=== PATIENT | male | born 1975 | race Two or more races ===

== ENCOUNTER 2017-03-10 21:59 | Inpatient (IN) | payer OTHER ==
[~2017-03-10] VITALS: Ht 177.8 cm; Wt 113.7 kg
[2017-03-10] MEDS ORDERED: morphine SULFATE 10 MG/ML, 1ML ONE ×2 (22:14→22:58)
[2017-03-10] MEDS ORDERED: ONDANSETRON 2MG/ML, 2ML ONE (22:19)
[2017-03-10] MEDS ORDERED: ASPIRIN 81 MG TABLET CHEW ONE (22:20)
[2017-03-10] MEDS ORDERED: ONDANSETRON 2MG/ML, 2ML IVPush ONE (22:30)
[2017-03-10] MEDS ORDERED: ASPIRIN 81 MG TABLET CHEW PO ONE (22:30)
[2017-03-10] MEDS ORDERED: PLEASE ENTER HEIGHT AND WEIGHT MC SCH (22:30)
[2017-03-10] MEDS ORDERED: SODIUM CHLORIDE FLUSH 10ML SYR IVF ONE (22:30)
[2017-03-10] MEDS: PLEASE ENTER ALLERGIES MC SCH ×2 (22:30)
[2017-03-10 22:36] LABS: HEMATOCRIT 45.3 % (39.2-51.8); HEMOGLOBIN 15.3 g/dL (13.7-18.0); WHITE BLOOD COUNT 11.5 x10^3/uL (3.4-10)
[2017-03-10 22:45] LABS: ASPARTATE AMINO TRANSFERASE 83 U/L (15-37); BLOOD UREA NITROGEN 20 mg/dL (7-18)
[2017-03-10] MEDS: MORPHINE SULFATE 4 MG/ML, 1ML IVPush PRN ×2 (22:45→23:01)
[2017-03-10 22:50] LABS: IS PT STATUS REG ER OR PRE ER? YES
[2017-03-10] MEDS ORDERED: HYDROmorphone 1 MG/ML, 1ML ONE (23:24)
[2017-03-10] MEDS ORDERED: HYDROmorphone 1 MG/ML, 1ML IV ONE (23:30)
[2017-03-10] MEDS ORDERED: SODIUM CHLORIDE 0.9% 1,000ML IVBOLUS ONE (23:30)
[2017-03-11] MEDS ORDERED: NITROGLYCERIN 0.4 MG/SPRAY SL PRN (01:00)
[2017-03-11] MEDS ORDERED: NITROGLYCERIN 0.4 MG BOTTLE (25 TABS) SL PRN (01:00)
[2017-03-11] MEDS ORDERED: hydrALAzine 20 MG/ML, 1ML IVPush PRN (01:00)
[2017-03-11] MEDS: PLEASE ENTER WEIGHT MC SCH ×2 (01:14→02:40)
[2017-03-11 01:28] LABS: IS PT STATUS REG ER OR PRE ER? YES
[2017-03-11] MEDS: morphine SULFATE 10 MG/ML, 1ML IVPush PRN ×3 (02:32→08:44)
[2017-03-11] MEDS: ONDANSETRON 2MG/ML, 2ML IVPush PRN ×2 (02:32→08:42)
[2017-03-11] MEDS: SODIUM CHLORIDE 0.9% 1,000 ML IV SCH ×3 (02:35→20:04)
[2017-03-11] MEDS: PLEASE ENTER ALLERGIES MC SCH ×2 (02:39)
[2017-03-11 02:44] VITALS: BP 156/91
[2017-03-11] MEDS ORDERED: OMEP20TA62 PO (02:44)
[2017-03-11] MEDS ORDERED: OMNIPAQUE 350 MG/ML, 100ML BOTTLE ONE (02:47)
[2017-03-11 05:07] LABS: IS PT STATUS REG ER OR PRE ER? NO
[2017-03-11 07:56] VITALS: BP 133/88
[2017-03-11] MEDS: PANTOPRAZOLE 40 MG IV IVPush SCH (07:57)
[2017-03-11] MEDS: SODIUM CHLORIDE FLUSH 10ML SYR IVF SCH ×2 (07:58→20:05)
[2017-03-11 08:47] LABS: HEMATOCRIT 45.9 % (39.2-51.8); HEMOGLOBIN 15.5 g/dL (13.7-18.0); WHITE BLOOD COUNT 9.1 x10^3/uL (3.4-10)
[2017-03-11] MEDS ORDERED: REGADENOSON 0.4 MG/5 ML SYRINGE ONE (08:55)
[2017-03-11 08:59] LABS: BLOOD UREA NITROGEN 17 mg/dL (7-18)
[2017-03-11 09:02] LABS: ASPARTATE AMINO TRANSFERASE 85 U/L (15-37)
[2017-03-11 09:07] LABS: IS PT STATUS REG ER OR PRE ER? NO
[2017-03-11 10:39] VITALS: BP 132/86
[2017-03-11 12:46] VITALS: BP 155/89
[2017-03-11] MEDS: HYDROmorphone 1 MG/ML, 1ML IV PRN ×3 (12:55→22:29)
[2017-03-11 18:20] VITALS: BP 135/89
[2017-03-11] MEDS ORDERED: KETOROLAC 30 MG/1 ML IVPush ONE (20:00)
[2017-03-12 02:21] VITALS: BP 133/83
[2017-03-12] MEDS: SODIUM CHLORIDE 0.9% 1,000 ML IV SCH ×3 (02:32→20:39)
[2017-03-12] MEDS: HYDROmorphone 1 MG/ML, 1ML IV PRN ×5 (02:32→20:39)
[2017-03-12 05:56] LABS: ASPARTATE AMINO TRANSFERASE 81 U/L (15-37); BLOOD UREA NITROGEN 12 mg/dL (7-18)
[2017-03-12] MEDS ORDERED: ASPIRIN 325 MG TABLET EC PO SCH (06:00)
[2017-03-12] MEDS: PANTOPRAZOLE 40 MG IV IVPush SCH (07:52)
[2017-03-12] MEDS: SODIUM CHLORIDE FLUSH 10ML SYR IVF SCH ×2 (07:53→20:39)
[2017-03-12 07:57] VITALS: BP 137/84
[2017-03-12 19:10] VITALS: BP 147/86
[2017-03-13] MEDS: HYDROmorphone 1 MG/ML, 1ML IV PRN ×2 (00:40→05:21)
[2017-03-13] MEDS: SODIUM CHLORIDE 0.9% 1,000 ML IV SCH (04:34)
[2017-03-13 04:35] VITALS: BP 147/90
[2017-03-13 06:55] VITALS: BP 158/90
[2017-03-13] MEDS: PANTOPRAZOLE 40 MG IV IVPush SCH (07:56)
[2017-03-13] MEDS: SODIUM CHLORIDE FLUSH 10ML SYR IVF SCH (07:56)
== END 2017-03-13 10:30 | disposition left against medical advice (07) | DRG 383 ==
LOC: ED 23:58 → EDIP 03-11 00:56 → 5SO 03-11 02:06
PROVIDERS: ADMIT Internal Medicine; ATTEND Internal Medicine
DX: K27.9 Peptic ulcer, site unspecified, unspecified as acute or chronic, without hemorrhage or perforation (principal); K85.90 Acute pancreatitis without necrosis or infection, unspecified; I24.9 Acute ischemic heart disease, unspecified; R07.89 Other chest pain; F17.210 Nicotine dependence, cigarettes, uncomplicated; K40.90 Unilateral inguinal hernia, without obstruction or gangrene, not specified as recurrent; Z53.21 Procedure and treatment not carried out due to patient leaving prior to being seen by health care provider; Z79.82 Long term (current) use of aspirin; Z83.3 Family history of diabetes mellitus; Z90.49 Acquired absence of other specified parts of digestive tract; E66.9 Obesity, unspecified; Z68.34 Body mass index [BMI] 34.0-34.9, adult
CPT/HCPCS: 36415; 71010; 74177; 76700; 78452; 80053; 80061; 82274; 83605; 83690; 83880; 84484; 85025; 85379; 85610; 85730; 93005; 93017; 96374; 96375; 96376; J1170; J1885; J2405; J2785; Q9967; A9502; C9113; C9898; J2270; J7030